=== PATIENT | female | born 1950 | race Caucasian/White ===

== ENCOUNTER 2019-02-18 13:02 | Inpatient (IN) | payer MEDICARE, OTHER ==
[2019-02-18] MEDS ORDERED: Diltiazem 125 MG in Sodium Chloride 0.9% 100 ML IVPB SCH (13:15)
--- NOTE | 2019-02-18 13:59 | RAD ---
XR Chest Pa Lat STANDARD HISTORY: Chest pain COMPARISON: None FINDINGS: The heart size is normal. The lungs are well expanded without focal areas of consolidation, pneumothorax or pleural effusions. IMPRESSION: No radiographic evidence of acute cardiopulmonary process.
[2019-02-18 14:20] LABS: #Eosinphils 0.2 thou/uL (0.0-0.7); #Lymphocytes 1.7 thou/uL (1.20-3.40); #Monocytes 0.6 thou/uL (0.11-0.59); #Neutrophils 3.7 thou/uL (1.40-6.50); %Basophils 0.4 % (0.0-1.0); %Lymphocytes 27.2 % (21.0-51.0); %Monocytes 9.1 % (0.0-10.0); %Neutrophils 60.3 % (42.0-75.0); Hemoglobin 13.2 g/dL (12.0-16.0); Mean Corpuscular HGB CONC 32.7 g/dL (32.0-36.0); Mean Corpuscular Hemoglobin 29.3 pg (27.0-31.0); Mean Corpuscular Volume 89.6 fL (78.0-98.0); Mean Platelet Volume 7.6 fL (7.4-10.4); Platelet Count 276 thou/uL (130-400); RBC Distribution Width 12.4 % (11.5-14.5); Red Blood Cell (RBC) Count 4.51 mill/uL (4.20-5.40); White Blood Cell (WBC) Count 6.1 thou/uL (4.8-10.8)
[2019-02-18 14:26] LABS: PTT 30.2 SEC (22.9-36.1); Prothrombin Time 13.1 SEC (12.0-14.7)
[2019-02-18 14:43] LABS: ALT (SGPT) 10 U/L (8-55); AST (SGOT) 14 U/L (5-34); Albumin 4.3 g/dL (3.4-4.8); Alkaline Phosphatase 78 U/L (40-150); Anion Gap 16 mmol/L (10-20); BUN (Urea Nitrogen) 7 mg/dL (9.8-20.1); Bilirubin, Total 0.7 mg/dL (0.2-1.2); CK (CPK) 33 U/L (29-168); Calc. Creatinine Clearance 0 mL/min (70-130); Calcium 10.4 mg/dL (7.8-10.44); Carbon Dioxide 22 mmol/L (23-31); Chloride 108 mmol/L (98-107); Estimated GFR-MDRD 59; Globulin 3.1 g/dL (2.4-3.5); Glucose 85 mg/dL (80-115); Potassium 3.7 mmol/L (3.5-5.1); Protein, Total 7.4 g/dL (6.0-8.3); Sodium 142 mmol/L (136-145)
[2019-02-18] MEDS ORDERED: Acetaminophen 325 MG TAB ONE (14:58)
[2019-02-18] MEDS ORDERED: Enoxaparin Sodium 60 MG/0.6 ML SYRINGE ONE (14:58)
[2019-02-18] MEDS ORDERED: Ondansetron PF 4 MG/2 ML Vial IVP PRN (17:00)
[2019-02-18] MEDS ORDERED: Acetaminophen 325 MG TAB PO PRN (17:00)
[2019-02-18] MEDS ORDERED: Zolpidem Tartrate 5 MG TAB PO PRN (17:00)
--- NOTE | 2019-02-18 17:23 | PDOC.EVN ---
Event Note - Event Note Event Note: H&P #[id number]
[2019-02-18 18:11] LABS: Troponin I Less than 0.010 ng/mL (< 0.028)
[2019-02-18] MEDS ORDERED: Atorvastatin Calcium 40 MG TAB PO SCH (21:00)
[2019-02-18 21:10] LABS: Troponin I Less than 0.010 ng/mL (< 0.028)
[2019-02-18 22:09] VITALS: BMI 30.5
[2019-02-18] MEDS: Carvedilol 6.25 MG TAB PO SCH (22:32)
[2019-02-18] MEDS: Apixaban 5 MG TAB PO SCH (22:34)
[2019-02-18 22:39] LABS: Hemoglobin 12.5 g/dL (12.0-16.0); Platelet Count 309 thou/uL (130-400)
[2019-02-18 23:03] LABS: Troponin I Less than 0.010 ng/mL (< 0.028)
--- NOTE | 2019-02-19 00:39 | HP ---
ADMITTING COMPLAINT: Palpitations. HISTORY OF PRESENT ILLNESS: This is a 68-year-old female, who is seen in the hospital due to palpation. The patient was found to be in rapid AFib with RVR. 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 She admits to prior medical history of coronary artery disease as well as having a recent coronary angiography approximately within the last 4 months, which was normal. The patient states that she otherwise has no other complaints or issues. No alleviating or aggravating factors. The patient states this is the first time she has felt this sort of symptomatology and palpitations. Denies any other symptoms currently. The patient states that she otherwise feels well. Lives at home. Takes all the medications that she is prescribed. The patient seen and examined in the ER. All questions answered. ALLERGIES: HYDROMORPHONE. PAST MEDICAL HISTORY: Positive for coronary artery disease, hypertension. FAMILY HISTORY: Positive for hypertension. SOCIAL HISTORY: Nondrinker, nonsmoker. REVIEW OF SYSTEMS: All systems reviewed, pertinent positive HPI, otherwise negative. PHYSICAL EXAMINATION: VITAL SIGNS: Heart rate in the 60s, irregular, blood pressure 128/88, respiratory rate of 12, temperature of 98. GENERAL: The patient lying in bed, in no acute discomfort. HEENT: Pupils are equal, round and reactive to light and accommodation. Extraocular muscles intact. Oral cavity moist and pink. NECK: Supple, mobile, nontender. Thyroid appreciated. PULMONARY: Clear to auscultation bilaterally. No rales, rhonchi, or wheezing appreciated. CARDIOVASCULAR: Irregularly irregular rhythms. Bradycardic. S1, S2. No murmurs, rubs, or gallops. ABDOMEN: Positive bowel sounds. Soft, nontender, nondistended. EXTREMITIES: 2+ peripheral pulses noted. No cyanosis, clubbing, or edema. NEUROLOGIC: Cranial nerves 2 through 12 intact. LABORATORY DATA: CBC reviewed. BMP reviewed. PT and INR reviewed. Chest x-ray reviewed. ASSESSMENT: 1. Rapid atrial fibrillation with rapid ventricular rate. 2. Hypertension. 3. Chest discomfort. PLAN: At this point in time, we will start the patient on Eliquis and place the patient on tele observation. We will obtain echocardiogram as well as a TSH level and trend troponins. We will start the patient on atorvastatin as well, CHADS2-VASc score of 2 with hypertension and the female sex. We will await for echo to see, if there is any signs and symptoms of heart failure. Potential discharge in a.m., if troponins remain normal. A 24 hour telemetry shows heart rate controlled less than 110. We will start Coreg for this and can go home with Ashley. Case and plan discussed with the patient at length. She understood and agreed to this plan. Job ID: [id number]
[2019-02-19 06:29] LABS: #Basophils 0.1 thou/uL (0.0-0.2); #Eosinphils 0.2 thou/uL (0.0-0.7); #Lymphocytes 1.5 thou/uL (1.20-3.40); #Monocytes 0.6 thou/uL (0.11-0.59); #Neutrophils 2.1 thou/uL (1.40-6.50); %Basophils 1.2 % (0.0-1.0); %Eosinophils 5.1 % (0.0-10.0); %Lymphocytes 32.8 % (21.0-51.0); %Monocytes 12.3 % (0.0-10.0); %Neutrophils 48.5 % (42.0-75.0); Mean Corpuscular HGB CONC 32.6 g/dL (32.0-36.0); Mean Corpuscular Hemoglobin 29.3 pg (27.0-31.0); Mean Corpuscular Volume 89.8 fL (78.0-98.0); Mean Platelet Volume 7.1 fL (7.4-10.4); Platelet Count 297 thou/uL (130-400); RBC Distribution Width 12.5 % (11.5-14.5); Red Blood Cell (RBC) Count 4.11 mill/uL (4.20-5.40); White Blood Cell (WBC) Count 4.4 thou/uL (4.8-10.8)
[2019-02-19 06:49] LABS: Anion Gap 11 mmol/L (10-20); BUN (Urea Nitrogen) 9 mg/dL (9.8-20.1); Calc. Creatinine Clearance 56 mL/min (70-130); Calcium 10.1 mg/dL (7.8-10.44); Carbon Dioxide 26 mmol/L (23-31); Chloride 107 mmol/L (98-107); Estimated GFR-MDRD 54; Glucose 78 mg/dL (80-115); Potassium 3.8 mmol/L (3.5-5.1); Sodium 140 mmol/L (136-145)
[2019-02-19 06:51] LABS: Troponin I Less than 0.010 ng/mL (< 0.028)
[2019-02-19] MEDS: Carvedilol 6.25 MG TAB PO SCH (08:45)
[2019-02-19] MEDS: Apixaban 5 MG TAB PO SCH (08:46)
--- NOTE | 2019-02-19 12:13 | PDOC.PN ---
- Subjective Encounter Start Date: 02/19/19 Encounter Start Time: 12:11 Patient lying in bed, she reports feeling better today and denies any chest pain or palpitations. She has been in sinus rhythm with cardizem - Objective MAR Reviewed: Yes Vital Signs & Weight: Vital Signs (12 hours) Temp Pulse Resp BP Pulse Ox 02/19/19 08:46 95 02/19/19 07:40 97.7 F 63 21 H 147/82 H 95 Weight Weight 148 lb 14.4 oz Result Diagrams: 02/19/19 06:14 02/19/19 06:14 Radiology Reviewed by me: Yes EKG Reviewed by me: Yes Phys Exam - Physical Examination Constitutional: NAD HEENT: PERRLA, moist MMs, oral pharynx no lesions Neck: supple Respiratory: no wheezing, clear to auscultation bilateral Cardiovascular: RRR, no rub Gastrointestinal: soft, no distention, positive bowel sounds Musculoskeletal: no edema, pulses present Neurological: non-focal, moves all 4 limbs Lymphatic: no nodes Psychiatric: normal affect, A&O x 3 Skin: no rash, cap refill <2 seconds Dx/Plan (1) Atrial fibrillation Code(s): I48.91 - UNSPECIFIED ATRIAL FIBRILLATION Status: Acute (2) HTN (hypertension) Code(s): I10 - ESSENTIAL (PRIMARY) HYPERTENSION Status: Acute (3) Hx of coronary artery disease Code(s): Z86.79 - PERSONAL HISTORY OF OTHER DISEASES OF THE CIRCULATORY SYSTEM Status: Acute - Plan cont current plan of care * Continue eliquis and cardizem * Cardiology consulted for new onset afib, currently rate controlled and sinus rhythm on monitor * Trop negative x3 * No signs of bleeding at this time
[2019-02-19 17:33] VITALS: BP 146/90; TEMP 98.7
== END 2019-02-19 17:43 | disposition home or self-care (01) | DRG 310 ==
LOC: ERS 13:02 → ERHOLD 15:29 → 2NO 21:37
PROVIDERS: ADMIT Internal Medicine; ATTEND Internal Medicine
DX: I48.91 Unspecified atrial fibrillation (principal); I10 Essential (primary) hypertension; I25.10 Atherosclerotic heart disease of native coronary artery without angina pectoris; I07.1 Rheumatic tricuspid insufficiency; I34.0 Nonrheumatic mitral (valve) insufficiency; R07.89 Other chest pain; Z98.890 Other specified postprocedural states; Z88.8 Allergy status to other drugs, medicaments and biological substances; Z82.49 Family history of ischemic heart disease and other diseases of the circulatory system
CPT/HCPCS: 36415; 71046; 80048; 80053; 82550; 84443; 84484; 85025; 85610; 85730; 93005; 93306; 94760; J1650; J3490

== ENCOUNTER 2019-04-16 13:07 | Outpatient (CLI) | payer MEDICARE, OTHER ==
[2019-04-16 14:42] LABS: Hemoglobin 12.5 g/dL (12.0-16.0); Mean Corpuscular HGB CONC 33.4 g/dL (32.0-36.0); Mean Corpuscular Hemoglobin 29.9 pg (27.0-31.0); Mean Corpuscular Volume 89.5 fL (78.0-98.0); Mean Platelet Volume 7.5 fL (7.4-10.4); Platelet Count 261 thou/uL (130-400); RBC Distribution Width 12.3 % (11.5-14.5); Red Blood Cell (RBC) Count 4.18 mill/uL (4.20-5.40); White Blood Cell (WBC) Count 5.5 thou/uL (4.8-10.8)
[2019-04-16 14:49] LABS: INR-International Normal Ratio 1.1; Prothrombin Time 14.6 SEC (12.0-14.7)
[2019-04-16 14:50] LABS: PTT 33.1 SEC (22.9-36.1)
[2019-04-16 15:23] LABS: Anion Gap 12 mmol/L (10-20); BUN (Urea Nitrogen) 11 mg/dL (9.8-20.1); Calc. Creatinine Clearance 0 mL/min (70-130); Calcium 10.3 mg/dL (7.8-10.44); Carbon Dioxide 27 mmol/L (23-31); Chloride 104 mmol/L (98-107); Estimated GFR-MDRD 50; Glucose 76 mg/dL (80-115); Potassium 3.9 mmol/L (3.5-5.1); Sodium 139 mmol/L (136-145)
== END 2019-04-16 13:08 | disposition home or self-care (01) ==
LOC: LABBT 13:07
PROVIDERS: ATTEND Internal Medicine Cardiovascular Disease
DX: Z01.818 Encounter for other preprocedural examination (principal); I48.91 Unspecified atrial fibrillation
CPT/HCPCS: 80048; 85027; 85610; 85730; 93005; 93010

== ENCOUNTER 2019-04-17 06:23 | Observation (INO) | payer MEDICARE, OTHER ==
[2019-04-16 13:16] VITALS: BMI 30.4
[2019-04-17] MEDS ORDERED: Heparin 10,000 UNITS/1 ML VIAL ONE ×2 (06:32→10:08)
[2019-04-17] MEDS ORDERED: Lidocaine 1% (PF) 30 ML VIAL ONE ×2 (06:43→06:51)
[2019-04-17] MEDS ORDERED: Fentanyl 100 MCG/2 ML VIAL ONE (08:37)
[2019-04-17] MEDS ORDERED: Heparin 25,000 units/D5W 500 ML ONE (09:55)
[2019-04-17] MEDS ORDERED: Isoproterenol 0.2 MG/1 ML AMP ONE (10:08)
[2019-04-17] MEDS ORDERED: Ondansetron HCl/PF 4 MG/2 ML Vial IVP PRN (12:44)
[2019-04-17] MEDS ORDERED: Promethazine HCl 25 MG/ML VIAL IM PRN (12:44)
[2019-04-17] MEDS ORDERED: Promethazine HCl 25 MG/ML VIAL SLOW IVP PRN (12:44)
[2019-04-17] MEDS ORDERED: Protamine Sulfate 50 MG/5 ML VIAL ONE (13:49)
--- NOTE | 2019-04-17 19:03 | OP ---
DATE OF PROCEDURE: 04/17/2019 PROCEDURES PERFORMED: Electrophysiology study and radiofrequency ablation. REASON FOR PROCEDURE: Ms. Kim is a 68-year-old woman, who has history of atrial fibrillation, paroxysmal with rapid rates and syncope. She is here for EP study and radiofrequency ablation. Eliquis was held this morning, but continued up until then. DESCRIPTION OF PROCEDURE: The patient received general anesthesia by Anesthesia specialist. The left and right femoral venous areas were prepped, draped, and anesthetized using subcutaneous lidocaine, and with ultrasound guidance, both femoral veins were cannulated x2. On the left side, an 11-Wallisian sheath was used to advanced an intracardiac echocardiogram probe, which was used to monitor the transseptal procedure as well as hemodynamics throughout the case. Also, through the left femoral vein, a Preface sheath was eventually advanced, which was used to advance a DuoDeca catheter into the coronary sinus and the right atrial position. On the right side, initially two 8-Wallisian short sheaths were introduced, and a ThermoCool SFST catheter was used to obtain right atrial map. CS and His bundle were delineated. Basic EP study was performed at this point with the following findings. Baseline rhythm, sinus rhythm with cycle length 1102 milliseconds, NH 155 milliseconds, QRS 96 milliseconds, QT 410 milliseconds, AH 133 milliseconds, HV 37 milliseconds. Sinus node recovery time 1571 with corrected sinus node recovery time was about 430, borderline. AV Wenckebach cycle length was 430. VA Wenckebach cycle length was 610 milliseconds. AV carlitos ERP was 1306. Burst atrial pacing did not induce atrial flutter or AVNRT. Ventricular pacing revealed concentric retrograde VA conduction. No evidence of dual AV carlitos physiology or accessory pathway was seen. Following that, the IV heparin was introduced, which was used throughout the case to keep ACTs over 350 and adjusted accordingly. The transseptal punctures were performed with the help of 2 SL1 sheaths, and through these, a ThermoCool SFST as well as a 20-pole Lasso catheter was advanced to the left atrium. 3D map of the left atrium was performed, and following that, pulmonary venous isolation was performed using total of 44 lesions at duration of 20 minutes. Via superior and inferior lines, posterior wall lesions were delivered with close attention to the esophageal temperature monitored by esophageal probe to avoid excessive heating. In the end of the case, we achieved 4-vein pulmonary vein isolation as well as posterior wall isolation. Isuprel was administered at 20 mcg, and any reconnection was re-ablated. The patient remained hemodynamically stable throughout the study. The catheters were pulled to the right side. IV heparin was stopped. Protamine was given at full dose to reverse the IV heparin effect. Following that, a Vascade closure was performed, and the sheaths were removed. Cardiac silhouette and intracardiac echo did not reveal significant change in the pericardial space. CONCLUSIONS: 1. Successful 4-vein pulmonary vein isolation as well as posterior wall isolation procedure. 2. Borderline abnormal sinus carlitos function. 3. Normal AV carlitos and infra-Hisian conduction system is seen. 4. No evidence of dual AV carlitos physiology or accessory pathways, and no SVT inducible. PLAN: Resume anticoagulants and continue to monitor for any recurrent arrhythmias. Job ID: [id number]
[2019-04-17] MEDS: Trospium 20 MG TAB PO SCH (19:53)
[2019-04-17] MEDS: Apixaban 5 MG TAB PO SCH (19:53)
[2019-04-17] MEDS ORDERED: Atorvastatin Calcium 40 MG TAB PO SCH (21:00)
[2019-04-18 08:35] VITALS: TEMP 98.3
[2019-04-18] MEDS ORDERED: Aspirin Chewable 81 MG TAB PO SCH (09:00)
[2019-04-18] MEDS ORDERED: FLUoxetine HCl 20 MG CAP PO SCH (09:00)
[2019-04-18] MEDS ORDERED: Donepezil HCl 5 MG TAB PO SCH (09:00)
[2019-04-18] MEDS: Apixaban 5 MG TAB PO SCH (09:13)
[2019-04-18] MEDS: Trospium 20 MG TAB PO SCH (09:14)
[2019-04-18 11:44] VITALS: BP 136/74
--- NOTE | 2019-04-19 06:09 | DIS ---
DATE OF ADMISSION: 04/17/2019 DATE OF DISCHARGE: 04/18/2019 DIAGNOSIS: Atrial fibrillation. PROCEDURES PERFORMED: Include electrophysiology study and radiofrequency ablation. Total of 20 minutes RF energy lesions delivered. Closure devices were deployed bilaterally. Successful isolation of all 4 pulmonary veins in addition to the posterior wall. Borderline abnormal sinus node function. Normal AV carlitos and infrahisian conduction system seen. No evidence of dual AV carlitos physiology or accessory pathway. SVT not inducible. HISTORY OF PRESENT ILLNESS: Ms. Kim is a pleasant 68-year-old woman with a history of atrial fibrillation, paroxysmal atrial fibrillation with RVR and syncope. She was taken to the EP lab for an outpatient electrophysiology study with radiofrequency ablation as detailed above. She has had an uncomplicated recovery without any complications and her rhythm has been stable. Active, feeling well this morning. She denies any heart racing, palpitations, chest pain, pressure, syncope, near syncope, stroke, stroke-like symptoms, nausea, vomiting, diarrhea, shortness of breath or difficulty urinating. She reports a slight discomfort in her chest, which is quite minimal and not bothersome. Otherwise, she does not have any cardiac concerns or complaints today. REVIEW OF SYSTEMS: An 8-point review of systems is negative except that listed above in the subjective portion. OBJECTIVE: VITAL SIGNS: Temp 98.3, pulse 75, blood pressure 136/74, respirations 18, and oxygen is 94% on room air. GENERAL: The patient is alert, oriented, speech is clear. Affect is appropriate. HEART: Rate is irregularly irregular with crisp S1 and S2. LUNGS: Clear to auscultation bilaterally. RESPIRATIONS: Even and nonlabored. ABDOMEN: Benign. EXTREMITIES: Warm and dry to touch. Well perfused without clubbing, cyanosis, or edema. NEUROLOGIC: Nonfocal and intact. Bilateral groin sites are stable. There is slight stiffness to the right groin access site, but no obvious signs of acute bleeding. There was some initial oozing after her bedrest on the right side that has been stable overnight and this morning for ambulation. DIAGNOSTIC STUDIES: Telemetry and EKG reveal normal sinus rhythm with occasional premature ventricular complexes, rates are controlled in 70s. There is no recurrent atrial arrhythmias with atrial fibrillation or atrial flutter seen on tele since the time of ablation and extremely rare atrial ectopy. DISCHARGE INSTRUCTIONS: 1. Follow up with [facility] in 6 weeks or sooner if symptoms dictate. 2. Contact [facility] with any postablation questions. 3. Continue oral anticoagulation on Eliquis without interruption. 4. Follow and refer to [facility] post ablation discharge instruction packet is provided. No lifting more than 10 pounds for the next week and no driving until groin sites are well healed. DISCHARGE MEDICATIONS: Resuming home medications of: 1. Protonix 40 mg daily. 2. Metoprolol succinate 100 mg daily. 3. Fluoxetine daily. 4. Donepezil daily. 5. Diltiazem 180 mg daily. 6. Lipitor 40 mg daily. 7. Aspirin 81 mg daily. 8. Eliquis 5 mg p.o. b.i.d. New prescriptions provided include; Pepecid and Carafate for 2 weeks, furosemide 40 mg daily p.r.n. shortness of breath, swelling and weight gain to be taken with potassium chloride 20 mEq. CONDITION AT DISCHARGE: Stable. Job ID: [id number] MTDD
== END 2019-04-18 12:40 | disposition home or self-care (01) ==
LOC: CCL 06:23 → 2SW 14:30
PROVIDERS: ADMIT Internal Medicine Cardiovascular Disease; ATTEND Internal Medicine Cardiovascular Disease
PROC: 02583ZZ Destruction of Conduction Mechanism, Percutaneous Approach (ICD-10-PCS; principal; 2019-04-17)
PROC: 02K83ZZ Map Conduction Mechanism, Percutaneous Approach (ICD-10-PCS; 2019-04-17)
PROC: 4A023FZ Measurement of Cardiac Rhythm, Percutaneous Approach (ICD-10-PCS; 2019-04-17)
PROC: 4A0234Z Measurement of Cardiac Electrical Activity, Percutaneous Approach (ICD-10-PCS; 2019-04-17)
DX: I48.0 Paroxysmal atrial fibrillation (principal); Z79.01 Long term (current) use of anticoagulants; Z79.82 Long term (current) use of aspirin; Z79.899 Other long term (current) drug therapy; Z88.5 Allergy status to narcotic agent; Z98.890 Other specified postprocedural states
CPT/HCPCS: 76942; 85347 ×2; 93005 ×2; 93613; 93623; 93656; 93662; C1731; C1732 ×3; C1759; C1769; G0378; 93010; J1644; J2001; J2720; J3010

== ENCOUNTER 2019-04-19 20:22 | Emergency (ER) | payer MEDICARE, OTHER ==
[2019-04-19 22:16] LABS: #Eosinphils 0.4 thou/uL (0.0-0.7); #Monocytes 0.7 thou/uL (0.11-0.59); #Neutrophils 3.3 thou/uL (1.40-6.50); %Basophils 0.6 % (0.0-1.0); %Eosinophils 6.1 % (0.0-10.0); %Lymphocytes 30.3 % (21.0-51.0); %Monocytes 11.1 % (0.0-10.0); %Neutrophils 51.9 % (42.0-75.0); Hemoglobin 11.9 g/dL (12.0-16.0); Mean Corpuscular HGB CONC 33.4 g/dL (32.0-36.0); Mean Corpuscular Hemoglobin 29.7 pg (27.0-31.0); Mean Corpuscular Volume 88.9 fL (78.0-98.0); Mean Platelet Volume 7.4 fL (7.4-10.4); Platelet Count 261 thou/uL (130-400); RBC Distribution Width 12.3 % (11.5-14.5); Red Blood Cell (RBC) Count 4.02 mill/uL (4.20-5.40); White Blood Cell (WBC) Count 6.4 thou/uL (4.8-10.8)
[2019-04-19 22:23] LABS: INR-International Normal Ratio 1.2; Prothrombin Time 15.4 SEC (12.0-14.7)
[2019-04-19 22:35] LABS: Anion Gap 11 mmol/L (10-20); BUN (Urea Nitrogen) 10 mg/dL (9.8-20.1); Calc. Creatinine Clearance 0 mL/min (70-130); Carbon Dioxide 26 mmol/L (23-31); Chloride 105 mmol/L (98-107); Estimated GFR-MDRD 48; Glucose 88 mg/dL (80-115); Potassium 3.4 mmol/L (3.5-5.1); Sodium 139 mmol/L (136-145)
--- NOTE | 2019-04-19 23:06 | ULT ---
Exam: Ultrasound pseudoaneurysm with compression. HISTORY: Right groin pain following heart catheterization 2 days ago with bleeding and bruising at the site. FINDINGS: No evidence for pseudoaneurysm. No significant hematoma. No abnormal fluid collection. IMPRESSION: No evidence for a pseudoaneurysm, significant hematoma or abnormal fluid collection or other acute pr ocess
== END 2019-04-19 23:36 | disposition home or self-care (01) ==
LOC: ERS 20:22
DX: S30.1XXA Contusion of abdominal wall, initial encounter (principal); I10 Essential (primary) hypertension; Z79.82 Long term (current) use of aspirin; Z79.899 Other long term (current) drug therapy; X58.XXXA Exposure to other specified factors, initial encounter
CPT/HCPCS: 36415; 76936; 80048; 85025; 85610; 85730

== ENCOUNTER 2019-04-21 03:35 | Observation (INO) | payer MEDICARE, OTHER ==
[2019-04-21 04:23] LABS: #Basophils 0.1 thou/uL (0.0-0.2); #Eosinphils 0.6 thou/uL (0.0-0.7); #Lymphocytes 1.7 thou/uL (1.20-3.40); #Monocytes 0.7 thou/uL (0.11-0.59); #Neutrophils 2.8 thou/uL (1.40-6.50); %Basophils 1.2 % (0.0-1.0); %Eosinophils 10.4 % (0.0-10.0); %Lymphocytes 29.3 % (21.0-51.0); %Monocytes 11.3 % (0.0-10.0); %Neutrophils 47.7 % (42.0-75.0); Hemoglobin 11.8 g/dL (12.0-16.0); Mean Corpuscular HGB CONC 33.3 g/dL (32.0-36.0); Mean Corpuscular Hemoglobin 29.8 pg (27.0-31.0); Mean Corpuscular Volume 89.3 fL (78.0-98.0); Platelet Count 274 thou/uL (130-400); RBC Distribution Width 12.2 % (11.5-14.5); Red Blood Cell (RBC) Count 3.95 mill/uL (4.20-5.40); White Blood Cell (WBC) Count 5.8 thou/uL (4.8-10.8)
[2019-04-21 04:37] LABS: ALT (SGPT) 15 U/L (8-55); AST (SGOT) 20 U/L (5-34); Albumin 3.9 g/dL (3.4-4.8); Alkaline Phosphatase 72 U/L (40-150); Anion Gap 11 mmol/L (10-20); BUN (Urea Nitrogen) 7 mg/dL (9.8-20.1); Bilirubin, Total 0.6 mg/dL (0.2-1.2); CK (CPK) 18 U/L (29-168); Calc. Creatinine Clearance 0 mL/min (70-130); Calcium 10.3 mg/dL (7.8-10.44); Carbon Dioxide 28 mmol/L (23-31); Chloride 105 mmol/L (98-107); Estimated GFR-MDRD 55; Globulin 3.2 g/dL (2.4-3.5); Glucose 92 mg/dL (80-115); Potassium 3.3 mmol/L (3.5-5.1); Protein, Total 7.1 g/dL (6.0-8.3); Sodium 141 mmol/L (136-145)
[2019-04-21] MEDS ORDERED: Ondansetron PF 4 MG/2 ML Vial IVP PRN ×2 (05:00→09:19)
[2019-04-21] MEDS ORDERED: Ondansetron ODT 4 MG TAB SL PRN (05:00)
[2019-04-21] MEDS ORDERED: Acetaminophen 325 MG TAB PO PRN ×2 (05:00→09:19)
[2019-04-21 05:05] LABS: CKMB 0.7 ng/mL (0-6.6)
[2019-04-21 07:44] LABS: Critical Call Chem Troponin I RESULT DECREASING; Troponin I 0.488 ng/mL (< 0.028)
[2019-04-21 08:51] VITALS: BMI 30.5
[2019-04-21] MEDS ORDERED: hydrALAZINE 20 MG/ML VIAL SLOW IVP PRN (09:19)
[2019-04-21] MEDS ORDERED: Ondansetron ODT 4 MG TAB PO PRN (09:19)
[2019-04-21] MEDS ORDERED: Furosemide 40 MG TAB PO PRN (09:23)
[2019-04-21] MEDS ORDERED: Potassium Chloride 20 MEQ TAB PO PRN (09:23)
--- NOTE | 2019-04-21 10:18 | RAD ---
PA AND LATERAL CHEST: Date: 04/21/19 HISTORY: Chest and left arm pain, sudden onset. COMPARISON: 02/18/19 exam. FINDINGS: Heart size is borderline in size. Mediastinal structures appear unremarkable. Lungs are clear of any infiltrative process. IMPRESSION: No active intrathoracic disease. Stable chest. POS: [facility]
[2019-04-21 11:03] LABS: Critical Call Chem Troponin I RESULT DECREASING; Troponin I 0.402 ng/mL (< 0.028)
[2019-04-21] MEDS: Sucralfate 1 GM TAB PO SCH ×3 (13:06→20:32)
--- NOTE | 2019-04-21 13:58 | HP ---
CHIEF COMPLAINT: Chest pain and left arm pain. HISTORY OF PRESENT ILLNESS: Ms. Kim is a very pleasant 68-year-old female, who has a history of hypertension as well as atrial fibrillation. She recently underwent radiofrequency ablation on Monday about 4 to 5 days ago. She was doing fine until early this morning. She says about 3:00 a.m. she woke up with pain in her left arm and her chest. She rated it about a 5/10. She said she had some nausea associated with it, but no shortness of breath. It lasted about 20 minutes total, and she says even now she does not feel quite right in her chest, but it is not pain. She denies having any dizziness. No palpitations and she denies any leg pain or swelling, but she did say that she came to the emergency room on Monday due to some bruising in her groin area. She says they evaluated her and discharged her. Otherwise, no other complaints. REVIEW OF SYSTEMS: CONSTITUTIONAL: There have been no fevers or chills. No night sweats. No weight loss. HEENT: She denies any headaches. No dizziness. No visual changes. No sore throat, rhinorrhea, or neck pain. No adenopathy. PULMONARY: No hemoptysis. No cough. No wheezing. CARDIOVASCULAR: As the history of present illness. GASTROINTESTINAL: No abdominal pain. She did have an episode of nausea, but has no vomiting. No change in bowels. GENITOURINARY: No urinary frequency or hematuria. No hesitancy. NEUROLOGIC: No focal weakness or numbness. No seizures. SKIN AND INTEGUMENT: No skin changes. No rash. ENDOCRINE: No heat or cold intolerance. PAST MEDICAL HISTORY: Significant for hypertension, atrial fibrillation, and cerebrovascular disease. She says she had a stroke in 2002. She originally had some left-sided weakness, but this is improved. PAST SURGICAL HISTORY: She has had an ablation 5 days ago as well as a cholecystectomy. ALLERGIES: HYDROMORPHONE. SOCIAL HISTORY: She is . No children. She is a nonsmoker and nondrinker. She would like to be a full code. FAMILY HISTORY: Significant for hypertension, and she says multiple of her female relatives have had gallstones, and her father of a massive heart attack at 56, and her mother of heart disease in her 80s. CURRENT MEDICATIONS: She says she is not sure of all of her medications, but they include: 1. Metoprolol extended release 100 mg daily. 2. Fluoxetine 20 mg daily. 3. Donepezil 5 mg daily. 4. Aspirin 81 mg a day. 5. Pantoprazole 40 mg daily. 6. K-Dur 20 mEq daily. The rest will need to be reconciled. PHYSICAL EXAMINATION: GENERAL: She is alert and oriented. She appears to be in no acute distress. VITAL SIGNS: Blood pressure was originally 192/95, heart rate 88, respiratory rate of 18, and temperature is 98.2. HEENT: Pupils are equal, round, and reactive to light and accommodation. Extraocular muscles are intact. Her sclerae are anicteric. Throat, there is no erythema and no exudates. NECK: No adenopathy. No bruits. LUNGS: Clear to auscultation. There is no wheezing, no rales, no rhonchi. CARDIOVASCULAR: She has a normal S1 and S2. There is no S3 or S4. No murmurs, clicks, or rubs. ABDOMEN: Obese. It is soft, nontender, and nondistended. Positive for bowel sounds. There is no rebound. No guarding. No organomegaly. EXTREMITIES: There is no calf tenderness. No joint effusions. NEUROLOGIC: Her cranial nerves are intact. Muscle strength is 5/5 in both her upper and lower extremities. SKIN AND INTEGUMENT: She did have a some bruising in the right groin, but she has good femoral pulses as well as good dorsalis pedis pulses bilaterally. There was no hematoma nor any evidence of any pulsatile mass. LABORATORY DATA: Her sodium is 141, potassium 3.3, chloride is 105, CO2 is 28, BUN of 7, creatinine 1.0, glucose is 92. Troponin was 0.5. White blood cell count 5.8, hemoglobin 11.8, hematocrit is 35.3, and platelet count is 274. IMAGING STUDIES: On her EKG, it was sinus rhythm, the rate is 70. There were some nonspecific ST-wave changes and she had a chest x-ray and that is by my reading, the heart size is normal. There is no evidence of any effusion or infiltrate. ASSESSMENT: This is a pleasant 68-year-old female, who presents to the emergency room with chest pain several days following radiofrequency ablation. She currently is pain free, but still does not feel comfortable in her chest. She will be placed in observation primarily as a precaution, and we will get an echocardiogram and consult PT and Cardiology in the a.m. for further recommendations. I suspect this is an expected syndrome following this procedure. She appears clinically stable. 1. Atrial fibrillation. She appears to be in sinus rhythm. We will go ahead and continue her home medications once these are reconciled. 2. Hypertension as above. Restart her home medications as well as p.r.n. medications as needed. Job ID: [id number]
--- NOTE | 2019-04-21 14:00 | CON ---
DATE OF CONSULTATION: 04/21/2019 REASON FOR CONSULTATION: Chest pain. PRIMARY HUMAN RESOURCES TEMP: Kei Sidhu MD. HISTORY OF PRESENT ILLNESS: Ms. Kim is a very pleasant, 68-year-old, white female, who comes to the hospital for chest pain. She is a patient of Dr. Sidhu. She saw him for the first time a month or 2 ago, at which point, she had a diagnosis of paroxysmal atrial fibrillation, that had failed medical therapy. She underwent evaluation by Dr. Brody and went ahead and had an atrial fibrillation ablation done on Monday of this week, today is Monday. She did well postoperatively and was discharged home on . She felt well. Earlier this morning at 3 a.m., she was woken up by left-sided chest pain, that radiated to her left arm, felt tingling and numbness on the left arm. The pain lasted for about 4 minutes, and then it went away on its own. She decided to come in for evaluation. Initial troponin was 0.5, so Cardiology has been consulted for further evaluation and care. On my evaluation, Ms. Kim is pain free. She only feels tingling on the tip of the fingers of the left hand. PAST MEDICAL HISTORY: 1. Paroxysmal atrial fibrillation, status post ablation just 4 days ago. 2. Hypertension. 3. Recent heart catheterization 4 months ago, which was normal. PAST SURGICAL HISTORY: 1. Heart catheterization as above. 2. Atrial fibrillation ablation as above. SOCIAL HISTORY: No alcohol, tobacco, or drugs. FAMILY HISTORY: Noncontributory. REVIEW OF SYSTEMS: A 12-point review of systems was done and was all negative unless stated in the history of present illness. OUTPATIENT MEDICATIONS: 1. Trospium chloride. 2. Furosemide 40 mg a day p.r.n. 3. Fluoxetine. 4. Donepezil. 5. Atorvastatin 40 mg at bedtime. 6. Diltiazem 180 mg a day. 7. Aspirin 81 mg a day. 8. Eliquis 5 mg b.i.d. 9. Potassium chloride 20 mEq a day. 10. Pantoprazole 40 mg a day. 11. Sucralfate. 12. Metoprolol succinate 100 mg a day. ALLERGIES: DILAUDID MAKES HER HALLUCINATE AND SEVERE VOMITING. PHYSICAL EXAMINATION: VITAL SIGNS: Temperature 97.9, pulse 68, respiratory rate 18, saturations 97% on room air, blood pressure 179/92. GENERAL: Awake, alert, and oriented x3, in no distress. HEENT: Normocephalic and atraumatic. NECK: Supple. LUNGS: Clear. CARDIOVASCULAR: S1 and S2. No S3 or S4. No murmurs. ABDOMEN: Soft. Positive bowel sounds. EXTREMITIES: No edema. SKIN: Warm and dry. LABORATORY DATA: Laboratory work was reviewed. CBC with a white count of 5.8, hemoglobin of 11.8, hematocrit of 35, platelet count of 274. Her hemoglobin is at baseline. It was 11.9 on the , so it has not significantly dropped since she was discharged. Chemistries were unremarkable except for potassium of 3.3. Her BNP was 139. Troponin was 0.50, 0.48, and 0.40, consistent with her history of recent ablation. CK-MB was 0.7. Albumin was normal. EKG was reviewed. Echocardiogram was reviewed. She has normal LV function. No major valvular abnormality. No evidence of pericardial effusion whatsoever. ASSESSMENT: 1. Chest pain status post ablation. 2. Paroxysmal atrial fibrillation, status post ablation, currently in sinus rhythm. 3. Normal heart catheterization just 4 to 5 months ago. PLAN: 1. Continue to monitor just overnight. Her echocardiogram is reassuring. I do not think this is a perforation as she would be much sicker than what she is. A troponin elevation is expected after an ablation, and it is still on its way down and has not increased. 2. We would monitor overnight on the monitor. If her monitor is unremarkable and her pain is not worsening with any significance, she should be able to be discharged home tomorrow. Thank you for letting us to participate in the care of your patient. Job ID: [id number]
[2019-04-21] MEDS: Trospium 20 MG TAB PO SCH (20:31)
[2019-04-21] MEDS: Apixaban 5 MG TAB PO SCH (20:31)
[2019-04-21] MEDS: Atorvastatin Calcium 40 MG TAB PO SCH (20:31)
[2019-04-22 05:03] LABS: #Basophils 0.1 thou/uL (0.0-0.2); #Eosinphils 0.6 thou/uL (0.0-0.7); #Lymphocytes 1.6 thou/uL (1.20-3.40); #Monocytes 0.6 thou/uL (0.11-0.59); #Neutrophils 2.8 thou/uL (1.40-6.50); %Basophils 1.1 % (0.0-1.0); %Eosinophils 10.1 % (0.0-10.0); %Lymphocytes 29.2 % (21.0-51.0); %Monocytes 9.9 % (0.0-10.0); %Neutrophils 49.8 % (42.0-75.0); Hemoglobin 11.3 g/dL (12.0-16.0); Mean Corpuscular HGB CONC 33.6 g/dL (32.0-36.0); Mean Corpuscular Hemoglobin 29.7 pg (27.0-31.0); Mean Corpuscular Volume 88.5 fL (78.0-98.0); Platelet Count 260 thou/uL (130-400); RBC Distribution Width 12.2 % (11.5-14.5); White Blood Cell (WBC) Count 5.6 thou/uL (4.8-10.8)
[2019-04-22 05:29] LABS: Anion Gap 11 mmol/L (10-20); BUN (Urea Nitrogen) 7 mg/dL (9.8-20.1); Calc. Creatinine Clearance 63 mL/min (70-130); Calcium 9.6 mg/dL (7.8-10.44); Carbon Dioxide 24 mmol/L (23-31); Chloride 106 mmol/L (98-107); Estimated GFR-MDRD 60; Glucose 83 mg/dL (80-115); Potassium 3.4 mmol/L (3.5-5.1); Sodium 138 mmol/L (136-145)
[2019-04-22] MEDS ORDERED: Potassium Chloride 20 MEQ TAB PO SCH (07:45)
[2019-04-22] MEDS: Sucralfate 1 GM TAB PO SCH ×4 (08:44→21:06)
[2019-04-22] MEDS: Apixaban 5 MG TAB PO SCH ×2 (08:44→21:05)
[2019-04-22] MEDS: Trospium 20 MG TAB PO SCH ×2 (08:45→21:06)
[2019-04-22] MEDS: Aspirin 81 mg Enteric Coated Tablet PO SCH (08:45)
[2019-04-22] MEDS: Donepezil HCl 5 MG TAB PO SCH (08:45)
[2019-04-22] MEDS: FLUoxetine HCl 20 MG CAP PO SCH (08:45)
--- NOTE | 2019-04-22 12:13 | PDOC.PN ---
- Subjective Encounter Start Date: 04/22/19 Encounter Start Time: 12:12 Ms. Kim was seen today in follow-up of chest pain. She is feeling better. She says the pain has improved, and she only notes it when she changes positions. - Objective Resuscitation Status - Order Detail: 04/21/19 09:19 Resuscitation Status Routine Resuscitation Status: FULL: Full Resuscitation MAR Reviewed: Yes Vital Signs & Weight: Vital Signs (12 hours) Temp Pulse Resp BP Pulse Ox 04/22/19 11:57 98.7 F 73 16 164/92 H 93 L 04/22/19 07:59 98.8 F 72 16 189/85 H 93 L 04/22/19 04:02 98 F 76 12 183/84 H 95 Weight Weight 150 lb 3.2 oz I&O: 04/21/19 04/22/19 04/23/19 06:59 06:59 06:59 Intake Total 1020 Balance 1020 Result Diagrams: 04/22/19 04:29 04/22/19 04:29 Phys Exam - Physical Examination HEENT: PERRLA Respiratory: no wheezing, no rales, no rhonchi, clear to auscultation bilateral Cardiovascular: RRR, no significant murmur, no rub Gastrointestinal: soft, non-tender, no distention, positive bowel sounds Musculoskeletal: no edema Dx/Plan (1) Chest pain Code(s): R07.9 - CHEST PAIN, UNSPECIFIED Status: Acute (2) Atrial fibrillation Code(s): I48.91 - UNSPECIFIED ATRIAL FIBRILLATION Status: Acute (3) HTN (hypertension) Code(s): I10 - ESSENTIAL (PRIMARY) HYPERTENSION Status: Acute - Plan * Chest pain- clinically stable * HTN-blood pressure is a bit elevated- will monitor and treat with PRN medications. * Echo results noted * Will monitor one more night as per EP
--- NOTE | 2019-04-22 13:44 | CON ---
DATE OF CONSULTATION: 04/22/2019 ADDITIONAL REFERRING PHYSICIAN: Kei Sidhu MD I am seeing Ms. Kim at our [facility] Telemetry Floor as electrophysiology systems consultant regarding her chest discomfort, possible postablation pericarditis. Her problems are; 1. Atypical left-sided chest pains with radiation to the left arm noted about 5 days after her original ablation procedure on 04/17/2019. 2. History of paroxysmal atrial fibrillation, status post pulmonary venous isolation procedure on 04/17/2019 with all pulmonary vein isolation and posterior wall ablation. 3. History of structural normal heart with 2D echo on 02/19/2019 reveals LVEF 55% to 60%. Normal left atrial size. 4. History of hypertension. ALLERGIES: HYDROMORPHONE. MEDICATIONS: At home included; 1. Metoprolol 100 mg a day. 2. Fluoxetine. 3. Donepezil. 4. Aspirin. 5. Pantoprazole. 6. K-Dur. 7. Carafate. SUBJECTIVE: Ms. Kim has been doing fair post ablation. She did require an ER visit, where ultrasound of the right femoral vein was required with no evidence of pseudoaneurysm, worsening hematoma, abnormal fluid collection or other processes seen at that time. She went home on Monday, but Monday she developed sudden retrosternal chest pains, which radiate to the left arm. The discomfort lasted about 20 minutes and has eventually resolved from her mild neuro discomfort. She had no further discomfort there. She denies swallowing difficulties. No dyspnea noted. No fever, chills, or cough. She does not pass out. No palpitations. No further bleeding issues. Her lower extremity discomfort has resolved. Rest of 12-point system otherwise unremarkable. PAST HISTORY: As above. SOCIAL HISTORY: The patient denies smoking, EtOH, or drug abuse. FAMILY HISTORY: Not contributory. OBJECTIVE DATA: VITAL SIGNS: Blood pressure is 189/85, heart rate 75, respiratory rate 16, and temperature 98.8 degrees Fahrenheit. GENERAL: Alert and oriented woman, in no apparent distress. NECK: Supple. There is no jugular venous distention. Hepatojugular reflux is negative. CHEST: Coarse without crackles. HEART: Heart sounds are regular to rate and rhythm. No murmur or gallop. ABDOMEN: Benign. Bowel sounds positive. EXTREMITIES: Lower extremities without edema, clubbing, or cyanosis. Pulses are adequate. NEUROLOGIC: The patient is nonfocal. MUSCULOSKELETAL: No joint pain or deformities. SKIN: Without rash. DATABASE: EKG reviewed, revealing sinus rhythm, no significant ST-T changes. The lab data reveals white count 5.6, hemoglobin 11.3, and platelet count is 260. Sodium 138, potassium 3.4, BUN is 11, and creatinine 0.93. Troponin I 0.5, then 0.48, then 0.40. BNP is 139 consecutively. The chest x-ray shows no acute process. ASSESSMENT AND PLAN: Ms. Kim is a pleasant 68-year-old woman with history of approximately atrial fibrillation, underwent pulmonary venous isolation procedure without major issues. She had minor bruising in the right groin, which was evaluated showed no signs of abnormality. Now, she returned with a sharp atypical chest pains, which is now resolved. Although, there was some troponin elevation at very low grade. It could be consistent with the recent ablation procedure. The discomfort is likely pericardial irritation from the ablation, although no full-fledged pericarditis is seen at this time. As her symptoms resolved, I would have no suspicions for ongoing large-scale pericarditis. We will continue monitoring nonsteroidal anti-inflammatory agents could be considered if recurrent symptoms are felt. For now, I have low suspicion for esophageal damage or pericardial tamponade. She could be monitored for an extra night and hopefully go home tomorrow. Job ID: [id number]
[2019-04-22] MEDS: Atorvastatin Calcium 40 MG TAB PO SCH (21:05)
[2019-04-23 08:16] VITALS: BP 143/88; TEMP 98.1
[2019-04-23] MEDS: FLUoxetine HCl 20 MG CAP PO SCH (08:25)
[2019-04-23] MEDS: Trospium 20 MG TAB PO SCH (08:25)
[2019-04-23] MEDS: Apixaban 5 MG TAB PO SCH (08:25)
[2019-04-23] MEDS: Donepezil HCl 5 MG TAB PO SCH (08:25)
[2019-04-23] MEDS: Aspirin 81 mg Enteric Coated Tablet PO SCH (08:25)
[2019-04-23] MEDS: Sucralfate 1 GM TAB PO SCH (09:33)
--- NOTE | 2019-04-23 10:25 | PDOC.CTH ---
Cardiology Progress Note - Subjective EP PROGRESS NOTE: 04/23/19 Seen as follow up for atypical chest pain post ablation. Episodes of mild positional CP continue. Otherwise no complaints. - Objective Vital Signs Temp Pulse Resp BP Pulse Ox 04/23/19 07:56 98.1 F 76 16 143/88 H 94 L 04/23/19 03:40 98.5 F 70 12 140/73 96 04/22/19 23:43 98.5 F 68 20 123/56 L 93 L Weight 150 lb 3.2 oz 04/22/19 04/23/19 04/24/19 06:59 06:59 06:59 Intake Total 1020 1150 Balance 1020 1150 - Physical Examination General/Neuro: alert & oriented x3, NAD Neck: carotid US brisk, no JVD present Lungs: CTA, unlabored respirations Heart: PMI normal, RRR Abdomen: NT/ND, soft - Telemetry Telemetry Rhythm: SR - Labs Result Diagrams: 04/22/19 04:29 04/22/19 04:29 Troponin/CKMB CK-MB (CK-2) 0.7 ng/mL (0-6.6) 04/21/19 04:08 Troponin I 0.402 ng/mL (< 0.028) H* 04/21/19 10:14 - Assessment/Plan 1. Atypical chest pain - recent atrial fibrillation ablation. attributed to inflammation. - positional, reproducible. - treat with PRN NSAIDs OK for DC by EP. Continue OAC. follow up in 5 weeks as scheduled.
[2019-04-23] MEDS ORDERED: Sucralfate 1 GM TAB PO SCH (11:30)
--- NOTE | 2019-04-23 14:11 | DIS ---
DATE OF ADMISSION: 04/21/2019 DATE OF DISCHARGE: 04/23/2019 DISCHARGE DISPOSITION: To home. DISCHARGE PRIMARY DIAGNOSIS: Chest pain, post atrial fibrillation ablation. SECONDARY DISCHARGE DIAGNOSES: 1. Hypertension. 2. Dyslipidemia. 3. History of dementia. 4. Depression. PROCEDURES DONE DURING HOSPITALIZATION: Chest x-ray done showed no active intrathoracic disease. Hemoglobin and hematocrit were 11 and 33, platelet count 260, MCV 88. Troponin I was indeterminate, peaking up to 0.50, CK-MB 0.7. BNP 139. BUN 7, creatinine 0.9. DISCHARGE MEDICATIONS: 1. Aspirin 81 mg p.o. daily. 2. Aricept 5 mg daily. 3. Fluoxetine 20 mg daily. 4. Toprol-XL 100 mg daily. 5. Protonix 40 mg daily. 6. K-Dur 20 mEq daily. 7. Trospium 20 mg twice daily. 8. Eliquis 5 mg twice daily. 9. Atorvastatin 40 mg p.o. at bedtime. 10. Cardizem CD 180 mg p.o. daily. 11. Lasix 40 mg daily. 12. Sucralfate 1 g p.o. before meals and at bedtime. ALLERGIES: TO HYDROMORPHONE. INPATIENT CONSULT: 1. Dr. Kilgore for Cardiology. 2. Dr. Ronn Linda for Electrophysiology. DISCHARGE PLAN: The patient to follow up with Dr. Ronn Linda in 2 weeks and primary care physician in 1 week. BRIEF COURSE DURING HOSPITALIZATION: The patient initially came in with complaints of chest pain and left arm pain. She has had recent radiofrequency ablation done along with EP studies for atrial fibrillation on the 19 of April. In view of her recent procedure and current chest pain, the patient was placed under observation. She has had indeterminate troponin peaking up to 0.6, likely from her recent EP studies. Her EKG did not reveal any new changes. Her chest pain completely resolved. She was evaluated by Dr. Kilgore and Dr. Ronn Linda. She has remained hemodynamically stable, eating well, and ambulating prior to discharge. She has been cleared by Dr. Ronn Linda for discharge. Please note, I have seen and examined the patient on the day of discharge. Job ID: [id number] MTDD
--- NOTE | 2019-04-27 23:42 | EKG ---
Test Reason : Blood Pressure : / mmHG Vent. Rate : 070 BPM Atrial Rate : 070 BPM P-R Int : 176 ms QRS Dur : 086 ms QT Int : 352 ms P-R-T Axes : 094 019 042 degrees QTc Int : 380 ms Normal sinus rhythm Nonspecific T wave abnormality Abnormal ECG Confirmed by TULIO ALVAREZ ([id number]), loan expeditor FRANCIS LARA ([id number] on 04/27/2019 11:42:39 PM Referred By: Confirmed By:TULIO ALVAREZ
== END 2019-04-23 11:09 | disposition home or self-care (01) ==
LOC: ERS 03:35 → ERHOLD 05:45 → 2SW 08:41
PROVIDERS: ADMIT Internal Medicine; ATTEND Internal Medicine
DX: R07.89 Other chest pain (principal); I10 Essential (primary) hypertension; E78.5 Hyperlipidemia, unspecified; F03.90 Unspecified dementia, unspecified severity, without behavioral disturbance, psychotic disturbance, mood disturbance, and anxiety; I48.0 Paroxysmal atrial fibrillation; F32.9 Major depressive disorder, single episode, unspecified; Z86.73 Personal history of transient ischemic attack (TIA), and cerebral infarction without residual deficits; Z88.5 Allergy status to narcotic agent; Z79.01 Long term (current) use of anticoagulants; Z79.82 Long term (current) use of aspirin; Z79.899 Other long term (current) drug therapy
CPT/HCPCS: 71046; 80048; 80053; 82550; 82553; 83880; 84484 ×2; 85025 ×2; 93005; 93306; 99285; G0378 ×3; 36415

== ENCOUNTER 2019-07-30 10:21 | Observation (INO) | payer MEDICARE, OTHER ==
[2019-07-30 10:47] LABS: #Basophils 0.1 thou/uL (0.0-0.2); #Eosinphils 0.3 thou/uL (0.0-0.7); #Lymphocytes 1.7 thou/uL (1.20-3.40); #Monocytes 0.6 thou/uL (0.11-0.59); #Neutrophils 2.7 thou/uL (1.40-6.50); %Basophils 1.3 % (0.0-1.0); %Eosinophils 5.3 % (0.0-10.0); %Lymphocytes 32.1 % (21.0-51.0); %Monocytes 10.9 % (0.0-10.0); %Neutrophils 50.4 % (42.0-75.0); Mean Corpuscular HGB CONC 33.4 g/dL (32.0-36.0); Mean Corpuscular Hemoglobin 29.1 pg (27.0-31.0); Mean Corpuscular Volume 87.2 fL (78.0-98.0); Mean Platelet Volume 7.4 fL (7.4-10.4); Platelet Count 295 thou/uL (130-400); RBC Distribution Width 12.4 % (11.5-14.5); Red Blood Cell (RBC) Count 4.45 mill/uL (4.20-5.40); White Blood Cell (WBC) Count 5.4 thou/uL (4.8-10.8)
[2019-07-30] MEDS ORDERED: Metoclopramide HCl 10 MG/2 ML VIAL ONE (10:53)
[2019-07-30] MEDS ORDERED: Acetaminophen 500 MG TAB ONE (10:53)
[2019-07-30 11:10] LABS: ALT (SGPT) 9 U/L (8-55); AST (SGOT) 16 U/L (5-34); Albumin 4.1 g/dL (3.4-4.8); Alkaline Phosphatase 81 U/L (40-110); Anion Gap 13 mmol/L (10-20); BUN (Urea Nitrogen) 7 mg/dL (9.8-20.1); Bilirubin, Total 0.6 mg/dL (0.2-1.2); Calc. Creatinine Clearance 0 mL/min (70-130); Calcium 10.4 mg/dL (7.8-10.44); Carbon Dioxide 25 mmol/L (23-31); Chloride 106 mmol/L (98-107); Estimated GFR-MDRD 60; Globulin 3.5 g/dL (2.4-3.5); Glucose 90 mg/dL (80-115); Lipase 26 U/L (8-78); Potassium 3.5 mmol/L (3.5-5.1); Protein, Total 7.6 g/dL (6.0-8.3); Sodium 140 mmol/L (136-145)
--- NOTE | 2019-07-30 11:42 | CT ---
Exam: Head CT without contrast HISTORY: Hypertension x4 days. Vomiting. COMPARISON: none FINDINGS: Hemorrhage: No intraparenchymal hemorrhage or extra-axial hematoma. Brain parenchyma: Cortical mahajan-white matter differentiation is preserved. No mass effect or midline shift. Basilar cisterns are patent.Extensive white matter hypodensities which may represent chronic small vessel ischemic changes. However, the possibility of a white matter infarcts or small areas of vasogenic edema cannot be entirely excluded. Indeterminate lacunar infarct in the genu of the left internal capsule. Ventricular system: Ventricles and sulci are patent and symmetric. Calvarium: Intact. Sinuses and mastoid air cells: Adequate aeration of the paranasal sinuses. Minimal opacification the posterior inferior left mastoid air cells. IMPRESSION: 1. No evidence of intraparenchymal hemorrhage. 2. White matter hypodensities which may represent chronic small vessel ischemic changes. However, the posterior white matter infarct or areas of vasogenic edema cannot be entirely excluded. Better interrogation with a pre and postcontrast brain MRI is recommended. 3. Indeterminate lacunar infarct in the genu of the left internal capsule.
--- NOTE | 2019-07-30 11:44 | RAD ---
PORTABLE CHEST: HISTORY: Chest pain. FINDINGS: The lungs are clear. No infiltrate. No evidence of vascular congestion. Heart and mediastinum unremar kable. IMPRESSION: No acute abnormality. POS: [facility]
--- NOTE | 2019-07-30 16:34 | PDOC.EVN ---
Event Note - Event Note Event Note: Patient left against medical advice from the ER before she was seen or examined by us. Per MEDICAL INSURANCE CODING SPECIALIST, long discussion was held between Dr. Hernandez and patient, investigations were reviewed and recommendations were made for CVA work up. Patient was asymptomatic therefore refused and opted to go home with plans to fup with her PCP and Dr. Brody this week.
== END 2019-07-30 16:22 | disposition left against medical advice (07) ==
LOC: ERS 10:21 → ERHOLD 13:40
PROVIDERS: ADMIT Internal Medicine; ATTEND Internal Medicine
DX: R42 Dizziness and giddiness (principal); R11.2 Nausea with vomiting, unspecified; R51 Headache; I10 Essential (primary) hypertension; Z53.29 Procedure and treatment not carried out because of patient's decision for other reasons; Z79.01 Long term (current) use of anticoagulants; Z79.899 Other long term (current) drug therapy
CPT/HCPCS: 70450; 71045; 80053; 83690; 84484; 85025; 93005; 94760; 96365; J2765